=== PATIENT | female | born 1955 | race Caucasian/White ===

== ENCOUNTER → 2017-04-14 | Outpatient (CLI) | payer OTHER ==
[2017-04-14 11:14] LABS: ASPARTATE AMINO TRANSFERASE 39 U/L (15-37); BLOOD UREA NITROGEN 17 mg/dL (7-18)
== END | disposition home or self-care (01) ==
LOC: LAB 10:27
PROVIDERS: ATTEND Internal Medicine
DX: E03.9 Hypothyroidism, unspecified (principal); E78.2 Mixed hyperlipidemia; K21.9 Gastro-esophageal reflux disease without esophagitis; R73.01 Impaired fasting glucose
CPT/HCPCS: 36415; 80053; 80061; 83036

== ENCOUNTER → 2017-05-21 | Outpatient (CLI) | payer OTHER | END | disposition home or self-care (01) | LOC: CFH 11:06 | PROVIDERS: ATTEND Internal Medicine | DX: Z12.31 Encounter for screening mammogram for malignant neoplasm of breast (principal) | CPT/HCPCS: 77063; G0202 ==

== ENCOUNTER → 2017-06-08 | Outpatient (CLI) | payer OTHER | END | disposition home or self-care (01) | LOC: RAD 08:03 | PROVIDERS: ATTEND Nurse Practitioner Family | DX: G93.89 Other specified disorders of brain (principal); J32.0 Chronic maxillary sinusitis | CPT/HCPCS: 70486 ==

== ENCOUNTER 2017-08-02 20:05 | Emergency (ER) | payer OTHER ==
[~2017-08-02] VITALS: Ht 162.6 cm; Wt 72.7 kg
[2017-08-02] MEDS ORDERED: ONDANSETRON 2MG/ML, 2ML IVPush ONE (20:30)
[2017-08-02] MEDS ORDERED: FAMOTIDINE 20 MG/2 ML IVP ONE (20:30)
[2017-08-02] MEDS ORDERED: SODIUM CHLORIDE 0.9% 1,000ML IVBOLUS ONE ×2 (20:30→21:30)
[2017-08-02] MEDS ORDERED: SODIUM CHLORIDE FLUSH 10ML SYR IVF ONE (20:30)
[2017-08-02 20:52] LABS: HEMATOCRIT 44.3 % (34.6-47.8); HEMOGLOBIN 15.1 g/dL (11.7-16.4)
[2017-08-02 20:57] LABS: BLOOD UREA NITROGEN 20 mg/dL (7-18)
[2017-08-02] MEDS ORDERED: DIPHENHYDRAMINE 50 MG/ML, 1ML ONE (21:07)
[2017-08-02] MEDS ORDERED: METOCLOPRAMIDE 5 MG/ML, 2ML ONE (21:07)
[2017-08-02] MEDS ORDERED: DIPHENHYDRAMINE 50 MG/ML, 1ML IVPush ONE (21:30)
[2017-08-02] MEDS ORDERED: METOCLOPRAMIDE 5 MG/ML, 2ML IVPush ONE (21:30)
[2017-08-02 23:21] VITALS: BP 124/76
[2017-08-02] MEDS ORDERED: POTA20PA PO (23:27)
[2017-08-02] MEDS ORDERED: FURO40TA6 PO (23:27)
[2017-08-02] MEDS ORDERED: CARV25TA12 PO (23:27)
[2017-08-02] MEDS ORDERED: HUM100VI6 SQ (23:30)
[2017-08-02] MEDS ORDERED: ATOR20TA9 PO (23:30)
[2017-08-02] MEDS ORDERED: LISI-170 PO (23:30)
[2017-08-02] MEDS ORDERED: DEXAMETHASONE 4 MG/ML, 1ML ONE (23:56)
[2017-08-03] MEDS ORDERED: DEXAMETHASONE 4 MG/ML, 1ML PO ONE
== END 2017-08-03 00:51 | disposition home or self-care (01) ==
LOC: ED 21:00
DX: J32.0 Chronic maxillary sinusitis (principal); R51 Headache; R11.2 Nausea with vomiting, unspecified; K12.0 Recurrent oral aphthae
CPT/HCPCS: 36415; 70450; 80048; 82040; 85025; 96361; 96374; 96375; 99285; J1200; J2765; J7030

== ENCOUNTER → 2017-08-24 | Outpatient (CLI) | payer OTHER ==
[~2017-08-24] MED LIST: ATOR20TA9 PO; CARV25TA12 PO; FURO40TA6 PO; HUM100VI6 SQ; LISI-170 PO; POTA20PA PO
== END | disposition home or self-care (01) ==
LOC: RAD 13:21
PROVIDERS: ATTEND Specialist
DX: M25.511 Pain in right shoulder (principal)

== ENCOUNTER → 2017-10-11 | Outpatient (CLI) | payer OTHER ==
[2017-10-11 07:52] LABS: BLOOD UREA NITROGEN 25 mg/dL (7-18)
[2017-10-11 08:02] LABS: ASPARTATE AMINO TRANSFERASE 13 U/L (15-37)
== END | disposition home or self-care (01) ==
LOC: LAB 07:20
PROVIDERS: ATTEND Internal Medicine
DX: E78.2 Mixed hyperlipidemia (principal); K21.9 Gastro-esophageal reflux disease without esophagitis; J30.9 Allergic rhinitis, unspecified; E66.3 Overweight; D17.9 Benign lipomatous neoplasm, unspecified
CPT/HCPCS: 36415; 80053; 80061; 83036; 84443

== ENCOUNTER → 2018-05-31 | Outpatient (CLI) | payer OTHER | END | disposition home or self-care (01) | LOC: CFH 10:19 | PROVIDERS: ATTEND Internal Medicine | DX: Z12.31 Encounter for screening mammogram for malignant neoplasm of breast (principal); R92.1 Mammographic calcification found on diagnostic imaging of breast; K21.9 Gastro-esophageal reflux disease without esophagitis; E78.5 Hyperlipidemia, unspecified | CPT/HCPCS: 77063; 77067 ==

== ENCOUNTER 2018-11-08 12:40 | Emergency (ER) | payer OTHER ==
[~2018-11-08] VITALS: Ht 162.6 cm; Wt 71.1 kg
[~2018-11-08 12:40] MED LIST changes: +ATOR20TA37 PO; -ATOR20TA9 PO; -POTA20PA PO; +POTA20PA31 PO
--- NOTE | 2018-11-08 13:19 | NUR ---
MD IS AT THE BEDSIDE FOR ASSESSMENT
[2018-11-08] MEDS ORDERED: METOCLOPRAMIDE 5 MG/ML, 2ML IVPush ONE (13:30)
[2018-11-08] MEDS ORDERED: SODIUM CHLORIDE 0.9% 1,000ML IVBOLUS ONE (13:30)
[2018-11-08] MEDS ORDERED: DIPHENHYDRAMINE 50 MG/ML, 1ML IVPush ONE (13:30)
[2018-11-08] MEDS ORDERED: KETOROLAC 30 MG/1 ML IVPush ONE (13:30)
[2018-11-08] MEDS ORDERED: DIPHENHYDRAMINE 50 MG/ML, 1ML ONE (13:41)
[2018-11-08] MEDS ORDERED: KETOROLAC 30 MG/1 ML ONE (13:42)
[2018-11-08] MEDS ORDERED: METOCLOPRAMIDE 5 MG/ML, 2ML ONE (13:42)
[2018-11-08 13:58] LABS: BASOPHILS # (AUTO) 0.04 x10^3/uL (0-0.1); BASOPHILS % (AUTO) 1 % (0-1); EOSINOPHILS # (AUTO) 0.17 x10^3/uL (0-0.4); EOSINOPHILS % (AUTO) 2 % (1-7); LYMPHOCYTES # (AUTO) 1.06 x10^3/uL (1-3.4); LYMPHOCYTES % (AUTO) 13 % (22-44); MD NO; MEAN CORPUSCULAR HGB CONC 34.4 g/dL (32.4-35.8); MEAN CORPUSCULAR VOLUME 84.2 fL (80-100); MEAN PLATELET VOLUME 8.3 fL (7.4-10.4); MONOCYTES # (AUTO) 0.53 x10^3/uL (0.2-0.8); MONOCYTES % (AUTO) 7 % (2-9); NEUTROPHILS # (AUTO) 6.36 x10^3/uL (1.8-6.8); NEUTROPHILS % (AUTO) 78 % (42-75); PLATELET COUNT 246 x10^3/uL (130-400); RED BLOOD COUNT 5.25 x10^6/uL (3.82-5.3); RED CELL DISTRIBUTION WIDTH 13.1 % (9.6-15.2)
[2018-11-08 14:04] LABS: ALBUMIN 4.2 g/dL (3.4-5.0); ANION GAP 8 mmol/L (5-15); CALCIUM 9.5 mg/dL (8.5-10.1); CHLORIDE 104 mmol/L (98-107)
--- NOTE | 2018-11-08 14:05 | NUR ---
PT RESTING COMFORTABLY ON AN E.R. GURNEY WHILA ALLOWING MEDICATIONS TO ABSORB. I WILL MONITOR AND TREAT ORDERED, as well as prn while awaiting lab results.
[2018-11-08 14:07] LABS: ALANINE AMINOTRANSFERASE 22 U/L (12-78); ALKALINE PHOSPHATASE 50 U/L (45-117); BILIRUBIN,TOTAL 0.5 mg/dL (0.2-1.0); CREATINE KINASE, TOTAL 26 U/L (26-192); CREATININE 1.66 mg/dL (0.55-1.02); TOTAL PROTEIN 8.4 g/dL (6.4-8.2)
--- NOTE | 2018-11-08 14:34 | NUR ---
PT TO CT W TECH
[2018-11-08] MEDS ORDERED: DEXAMETHASONE 4 MG/ML, 5ML ONE (15:40)
[2018-11-08] MEDS ORDERED: ONDANSETRON 2MG/ML, 2ML ONE (15:40)
--- NOTE | 2018-11-08 15:50 | NUR ---
PT MEDICATED PER MAR FOR CONTINUED NAUSEA, AND HEADACHE. VS ARE STABLE AND WDL. I WILL CONTINUE TO MONITOR AND TREAT ORDERED, WELL PRN WHILE AWAITING FURTHER PLAN OF CARE.
[2018-11-08 15:58] LABS: MICROSCOPIC AUTO
[2018-11-08] MEDS ORDERED: DEXAMETHASONE 4 MG/ML, 1ML IV ONE (16:00)
[2018-11-08] MEDS ORDERED: ONDANSETRON 2MG/ML, 2ML IVPush ONE (16:00)
[2018-11-08 16:03] LABS: CULTURE INDICATED? YES
--- NOTE | 2018-11-08 16:28 | NUR ---
EMI (RN) IS ASSUMING CARE OF THIS PT WHILE I ENJOY A LUNCH BREAK. SBAR REPORT WAS EXCHANGED AT THE BEDSIDE.
--- NOTE | 2018-11-08 17:08 | NUR ---
I AM ASSUMING CARE OF THIS PT FROM EMI (RN) AT THIS TIME. SBAR REPORT WAS EXCHANGED AT THE BEDSIDE.
[2018-11-08 17:21] VITALS: BP 111/79
== END 2018-11-08 17:23 | disposition home or self-care (01) ==
LOC: ED 16:14
DX: R51 Headache (principal); R19.7 Diarrhea, unspecified; R11.2 Nausea with vomiting, unspecified; E86.0 Dehydration; N28.9 Disorder of kidney and ureter, unspecified; E11.9 Type 2 diabetes mellitus without complications; E78.5 Hyperlipidemia, unspecified; Z90.710 Acquired absence of both cervix and uterus; Z86.39 Personal history of other endocrine, nutritional and metabolic disease
CPT/HCPCS: 36415; 70450; 71045; 74176; 80053; 81001; 82550; 83690; 85025; 87086; 96374; 96375; 99284; J1100; J1200; J1885; J2405; J2765; J7030

== ENCOUNTER 2019-01-21 10:13 | Day surgery (SDC) | payer OTHER ==
[~2019-01-21] VITALS: Ht 165.1 cm; Wt 66.9 kg
[~2019-01-21 10:13] MED LIST changes: +HYDROmorphone 1 MG/ML, 1ML IV PRN; +LABETALOL 5MG/ML, 20ML IV PRN; +MEPERIDINE/PF 25MG/0.5ML IVPush PRN; +MIDAZOLAM 1 MG/ML, 2ML IV PRN; +ONDANSETRON 2MG/ML, 2ML IVPush PRN; +OXYcodone 5 MG/5 ML ORAL.SOL UDC PO PRN; +PLEASE ENTER HEIGHT AND WEIGHT MC SCH
[2019-01-21 10:37] VITALS: BP 130/79
[2019-01-21] MEDS ORDERED: LACTATED RINGERS 1,000 ML IV SCH (10:41)
[2019-01-21] MEDS ORDERED: MULT-658 PO (11:10)
[2019-01-21] MEDS ORDERED: DIPH25CA61 PO (11:10)
[2019-01-21] MEDS ORDERED: ATOR20TA37 PO (11:10)
[2019-01-21] MEDS ORDERED: CETI10CA PO (11:10)
[2019-01-21] MEDS ORDERED: LEVO112T4 PO (11:10)
[2019-01-21] MEDS ORDERED: CHOL200052 PO (11:10)
[2019-01-21] MEDS ORDERED: METH750T2 PO (11:10)
[2019-01-21] MEDS ORDERED: AZEL137S4 NAS (11:10)
[2019-01-21] MEDS ORDERED: KRIL1CAP22 PO (11:10)
[2019-01-21] MEDS ORDERED: LACT10SO28 PO (11:10)
[2019-01-21] MEDS ORDERED: OMEP40CA6 PO (11:10)
[2019-01-21] MEDS ORDERED: INDO75CA3 PO (11:10)
[2019-01-21] MEDS ORDERED: DEXAMETHASONE 4 MG/ML, 1ML ONE (12:16)
[2019-01-21] MEDS ORDERED: ONDANSETRON 2MG/ML, 2ML ONE (12:16)
[2019-01-21] MEDS ORDERED: PROPOFOL 10 MG/ML, 20ML ONE (12:16)
[2019-01-21] MEDS ORDERED: PROMETHAZINE 25 MG/ML, 1ML ONE (13:07)
[2019-01-21] MEDS ORDERED: FENTANYL PF 100 MCG/2ML ONE (13:14)
[2019-01-21] MEDS ORDERED: ACETAMINOPHEN 650 MG/20.3 ML UDC ONE (13:14)
[2019-01-21] MEDS: FENTANYL PF 100 MCG/2ML IV PRN ×3 (13:15→13:50)
[2019-01-21] MEDS ORDERED: PROMETHAZINE 25 MG/ML, 1ML IV PRN (13:30)
[2019-01-21] MEDS ORDERED: ACETAMINOPHEN 650 MG/20.3 ML UDC PO PRN (13:30)
[2019-01-21] MEDS ORDERED: OXYcodone 5 MG/5 ML ORAL.SOL UDC ONE (13:47)
== END 2019-01-21 15:05 | disposition home or self-care (01) ==
LOC: OUT 10:13
PROVIDERS: ATTEND Internal Medicine
DX: K56.609 Unspecified intestinal obstruction, unspecified as to partial versus complete obstruction (principal); K57.30 Diverticulosis of large intestine without perforation or abscess without bleeding; K63.3 Ulcer of intestine; K64.8 Other hemorrhoids; E03.9 Hypothyroidism, unspecified; E78.00 Pure hypercholesterolemia, unspecified; Z88.8 Allergy status to other drugs, medicaments and biological substances
CPT/HCPCS: 45380; 45398; 88305; 93005; J1100; J2405; J2550; J2704; J3010; J7120

== ENCOUNTER 2019-01-29 09:46 | Inpatient (IN) | payer OTHER ==
[~2019-01-29] VITALS: Ht 165.1 cm; Wt 65.0 kg
[~2019-01-29 09:46] MED LIST changes: +AZEL137S4 NAS; +CETI10CA PO; +CHOL200052 PO; +DIPH25CA61 PO; -HYDROmorphone 1 MG/ML, 1ML IV PRN; +INDO75CA3 PO; +KRIL1CAP22 PO; -LABETALOL 5MG/ML, 20ML IV PRN; +LACT10SO28 PO; +LEVO112T4 PO; -MEPERIDINE/PF 25MG/0.5ML IVPush PRN; +METH750T2 PO; -MIDAZOLAM 1 MG/ML, 2ML IV PRN; +MULT-658 PO; +OMEP40CA6 PO; -ONDANSETRON 2MG/ML, 2ML IVPush PRN; -OXYcodone 5 MG/5 ML ORAL.SOL UDC PO PRN; -PLEASE ENTER HEIGHT AND WEIGHT MC SCH
[2019-01-29] MEDS ORDERED: ONDANSETRON 2MG/ML, 2ML ONE (10:06)
--- NOTE | 2019-01-29 10:06 | NUR ---
PT REFUSED EKG WHEN TECH ARRIVED. PT STATED "I DON'T NEED AN EKG. YOU CAN LOOK AT MY EKG FROM THE ."
[2019-01-29] MEDS ORDERED: HYDROmorphone 1 MG/ML, 1ML AMP ONE ×2 (10:07→12:04)
[2019-01-29] MEDS: HYDROmorphone 2 MG/ML, 1ML IVPush PRN ×2 (10:25→12:06)
--- NOTE | 2019-01-29 10:26 | NUR ---
PT IN GOWN IN BED. BBACK BFROM X RAY AT THIS TIME. PT MEDICATED PER ORDER
--- NOTE | 2019-01-29 10:28 | NUR ---
LAST ORAL INTAKE WAS 01/28 AT 1800
[2019-01-29] MEDS ORDERED: ONDANSETRON 2MG/ML, 2ML IVPush ONE (10:30)
[2019-01-29] MEDS ORDERED: SODIUM CHLORIDE FLUSH 10ML SYR IVF ONE (10:30)
[2019-01-29] MEDS ORDERED: SODIUM CHLORIDE 0.9% 1,000ML IVBOLUS ONE ×2 (10:30→12:00)
[2019-01-29 10:44] LABS: BASOPHILS # (AUTO) 0.09 x10^3/uL (0-0.1); BASOPHILS % (AUTO) 1 % (0-1); EOSINOPHILS # (AUTO) 0.05 x10^3/uL (0-0.4); EOSINOPHILS % (AUTO) 1 % (1-7); LYMPHOCYTES # (AUTO) 1.28 x10^3/uL (1-3.4); LYMPHOCYTES % (AUTO) 17 % (22-44); MD NO; MEAN CORPUSCULAR HEMOGLOBIN 26.1 pg (27.0-34.8); MEAN CORPUSCULAR HGB CONC 32.7 g/dL (32.4-35.8); MEAN CORPUSCULAR VOLUME 79.9 fL (80-100); MEAN PLATELET VOLUME 8.6 fL (7.4-10.4); MONOCYTES # (AUTO) 0.39 x10^3/uL (0.2-0.8); MONOCYTES % (AUTO) 5 % (2-9); NEUTROPHILS # (AUTO) 5.92 x10^3/uL (1.8-6.8); NEUTROPHILS % (AUTO) 77 % (42-75); PLATELET COUNT 210 x10^3/uL (130-400); RED BLOOD COUNT 5.37 x10^6/uL (3.82-5.3); RED CELL DISTRIBUTION WIDTH 13.3 % (9.6-15.2)
[2019-01-29 10:53] LABS: ALANINE AMINOTRANSFERASE 27 U/L (12-78); ANION GAP 8 mmol/L (5-15); CALCIUM 9.6 mg/dL (8.5-10.1); CHLORIDE 108 mmol/L (98-107); CREATININE 1.03 mg/dL (0.55-1.02)
[2019-01-29 10:55] LABS: ALKALINE PHOSPHATASE 40 U/L (45-117); BILIRUBIN,TOTAL 0.7 mg/dL (0.2-1.0); TOTAL PROTEIN 7.7 g/dL (6.4-8.2)
--- NOTE | 2019-01-29 12:13 | NUR ---
dr cosme spoke with dr kirkpatrick. paged dr xavier for dr cosme.
[2019-01-29] MEDS: NS + 20MEQ KCL 1,000 ML IV SCH (12:52)
[2019-01-29] MEDS ORDERED: hydrALAzine 20 MG/ML, 1ML IVPush PRN (13:00)
[2019-01-29] MEDS ORDERED: DEXTROSE 4 GM TAB.CHEW PO PRN (13:00)
[2019-01-29] MEDS ORDERED: DHA PO SCH (13:00)
[2019-01-29] MEDS ORDERED: EPA PO SCH (13:00)
[2019-01-29] MEDS ORDERED: ONDANSETRON 2MG/ML, 2ML IVPush PRN (13:00)
[2019-01-29] MEDS ORDERED: PHOSPHO PO SCH (13:00)
[2019-01-29] MEDS ORDERED: KRILL PO SCH (13:00)
[2019-01-29] MEDS ORDERED: KETOROLAC 30 MG/1 ML IV PRN (13:00)
[2019-01-29] MEDS ORDERED: PROMETHAZINE 25 MG/ML, 1ML IM PRN (13:00)
[2019-01-29] MEDS ORDERED: [UNRECOGNIZED DRUG - OTHER] PO SCH (13:00)
[2019-01-29] MEDS: MULTIVITAMIN 1 TABLET PO SCH (13:00)
[2019-01-29] MEDS ORDERED: GLUCAGON 1 MG IM PRN (13:00)
[2019-01-29] MEDS ORDERED: AST PO SCH (13:00)
[2019-01-29] MEDS ORDERED: BUTALB/APAP/CAFFEINE 50MG/325MG/40MG PO PRN (13:00)
[2019-01-29] MEDS ORDERED: TEMPLATE NON-FORMULARY MED. (Cholecalciferol (Vitamin D3)** (Vitamin D**) 2,000 UNIT) PO SCH (13:00)
[2019-01-29] MEDS ORDERED: ACETAMINOPHEN 325 MG TABLET PO PRN (13:00)
[2019-01-29] MEDS ORDERED: METHOCARBAMOL 750 MG TABLET PO PRN (13:00)
[2019-01-29] MEDS: INSULIN LISPRO 100 UNITS/ML, PEN SQ-INSULIN SCH ×3 (13:00→21:00)
[2019-01-29] MEDS ORDERED: TEMPLATE NON-FORMULARY MED. (Omeprazole** 40 MG) PO SCH (13:00)
[2019-01-29] MEDS ORDERED: DEXTROSE 50%, 50ML SYRINGE IVPush PRN (13:00)
[2019-01-29] MEDS ORDERED: CETIRIZINE 10 MG TABLET PO PRN (13:00)
[2019-01-29] MEDS ORDERED: Azelastine Hcl Nasal 1 SPRAY) NAS PRN (13:00)
[2019-01-29 13:44] LABS: MICROSCOPIC NOT IND
[2019-01-29] MEDS ORDERED: PROMETHAZINE 25 MG/ML, 1ML ONE (13:45)
[2019-01-29] MEDS ORDERED: MORPHINE SULFATE 4 MG/ML, 1ML ONE (13:45)
[2019-01-29] MEDS: MORPHINE SULFATE 4 MG/ML, 1ML IVPush PRN ×2 (13:48→20:01)
[2019-01-29 13:55] LABS: CULTURE INDICATED? NO
[2019-01-29] MEDS ORDERED: OMEPRAZOLE 20 MG CAPSULE.DR ONE (14:37)
--- NOTE | 2019-01-29 14:46 | NUR ---
ng tube discussed with gi and pt. at this time pt is refusing the ng tube for a later time.
[2019-01-29] MEDS: LEVOTHYROXINE 112 MCG TABLET PO SCH (15:24)
--- NOTE | 2019-01-29 16:02 | NUR ---
PT MEDICATED ORDERED, ON REASSESSMENT OF IV LINE PT ACCIDENTLY PULLED OUT, RESTARTED TO L FA, PT TOLERATED WELL.
[2019-01-29] MEDS ORDERED: NS + 20MEQ KCL 1,000 ML IV ONE (16:12)
--- NOTE | 2019-01-29 18:00 | NUR ---
general surgeon in room now.
[2019-01-29 19:00] VITALS: BP 146/72
[2019-01-29] MEDS: ATORVASTATIN 20 MG TABLET PO SCH (20:10)
[2019-01-29] MEDS: SODIUM CHLORIDE FLUSH 10ML SYR IVF SCH (21:00)
[2019-01-30 01:52] VITALS: BP 120/72
[2019-01-30] MEDS: NS + 20MEQ KCL 1,000 ML IV SCH (03:09)
[2019-01-30 05:29] LABS: BASOPHILS # (AUTO) 0.03 x10^3/uL (0-0.1); BASOPHILS % (AUTO) 0 % (0-1); EOSINOPHILS % (AUTO) 1 % (1-7); LYMPHOCYTES % (AUTO) 30 % (22-44); MD NO; MEAN CORPUSCULAR HEMOGLOBIN 27.2 pg (27.0-34.8); MEAN CORPUSCULAR HGB CONC 33.5 g/dL (32.4-35.8); MEAN CORPUSCULAR VOLUME 81.2 fL (80-100); MEAN PLATELET VOLUME 8.5 fL (7.4-10.4); MONOCYTES # (AUTO) 0.66 x10^3/uL (0.2-0.8); MONOCYTES % (AUTO) 10 % (2-9); NEUTROPHILS # (AUTO) 4.09 x10^3/uL (1.8-6.8); NEUTROPHILS % (AUTO) 59 % (42-75); PLATELET COUNT 174 x10^3/uL (130-400); RED CELL DISTRIBUTION WIDTH 13.7 % (9.6-15.2)
[2019-01-30 05:34] LABS: ANION GAP 3 mmol/L (5-15); CALCIUM 8.2 mg/dL (8.5-10.1); CHLORIDE 110 mmol/L (98-107); CREATININE 0.85 mg/dL (0.55-1.02)
[2019-01-30 06:32] VITALS: BP 117/70
[2019-01-30] MEDS: INSULIN LISPRO 100 UNITS/ML, PEN SQ-INSULIN SCH (07:00)
[2019-01-30] MEDS ORDERED: BUTALB/APAP/CAFFEINE 50MG/325MG/40MG PO PRN (07:30)
[2019-01-30] MEDS: LACTOBACILLUS CHEW TABLET PO SCH ×3 (09:00→20:57)
[2019-01-30] MEDS: MULTIVITAMIN 1 TABLET PO SCH (09:00)
[2019-01-30] MEDS: OMEGA-3/FISH OIL CAPSULE PO SCH (09:00)
[2019-01-30] MEDS: SODIUM CHLORIDE FLUSH 10ML SYR IVF SCH ×2 (09:00→21:00)
[2019-01-30] MEDS: SODIUM CHLORIDE 0.9% 1,000 ML IV SCH ×2 (09:57→20:57)
[2019-01-30] MEDS: ENOXAPARIN 40 MG/0.4 ML SQ SCH (09:57)
[2019-01-30] MEDS: CHOLECALCIFEROL 1,000 UNIT TABLET PO SCH (09:58)
[2019-01-30] MEDS: OMEPRAZOLE 20 MG CAPSULE.DR PO SCH (09:58)
[2019-01-30] MEDS: LEVOTHYROXINE 112 MCG TABLET PO SCH (09:59)
[2019-01-30] MEDS ORDERED: MORPHINE SULFATE 4 MG/ML, 1ML IVPush PRN (10:00)
[2019-01-30] MEDS: ACETAMINOPHEN 325 MG TABLET PO PRN ×2 (10:03→18:45)
[2019-01-30 12:57] VITALS: BP 131/82
[2019-01-30] MEDS ORDERED: GOLYTELY 4,000ML ORAL.SOL PO ONE (14:30)
[2019-01-30 19:07] VITALS: BP 123/74
[2019-01-30] MEDS: ATORVASTATIN 20 MG TABLET PO SCH (20:57)
[2019-01-31 03:33] VITALS: BP 141/67
[2019-01-31] MEDS: SODIUM CHLORIDE 0.9% 1,000 ML IV SCH (03:45)
[2019-01-31] MEDS: OMEPRAZOLE 20 MG CAPSULE.DR PO SCH ×2 (06:00→19:56)
[2019-01-31] MEDS: ENOXAPARIN 40 MG/0.4 ML SQ SCH (07:30)
[2019-01-31 07:50] VITALS: BP 123/64
[2019-01-31] MEDS: SODIUM CHLORIDE FLUSH 10ML SYR IVF SCH ×2 (09:00→20:57)
[2019-01-31] MEDS: LEVOTHYROXINE 112 MCG TABLET PO SCH ×2 (09:00→19:57)
[2019-01-31] MEDS: MULTIVITAMIN 1 TABLET PO SCH ×2 (09:00→19:57)
[2019-01-31] MEDS: OMEGA-3/FISH OIL CAPSULE PO SCH ×2 (09:00→19:56)
[2019-01-31] MEDS: CHOLECALCIFEROL 1,000 UNIT TABLET PO SCH ×2 (09:00→19:57)
[2019-01-31] MEDS: LACTOBACILLUS CHEW TABLET PO SCH ×3 (09:00→19:56)
[2019-01-31] MEDS ORDERED: PROPOFOL 10 MG/ML, 50ML ONE (09:52)
[2019-01-31 13:32] VITALS: BP 113/76
[2019-01-31 19:27] VITALS: BP 128/77
[2019-01-31] MEDS: ATORVASTATIN 20 MG TABLET PO SCH (20:57)
[2019-02-01] MEDS: ENOXAPARIN 40 MG/0.4 ML SQ SCH (07:30)
[2019-02-01 08:35] VITALS: BP 116/76
[2019-02-01] MEDS: SODIUM CHLORIDE FLUSH 10ML SYR IVF SCH (09:00)
[2019-02-01] MEDS: MULTIVITAMIN 1 TABLET PO SCH (10:03)
[2019-02-01] MEDS: LACTOBACILLUS CHEW TABLET PO SCH (10:03)
[2019-02-01] MEDS: LEVOTHYROXINE 112 MCG TABLET PO SCH (10:03)
[2019-02-01] MEDS: OMEGA-3/FISH OIL CAPSULE PO SCH (10:04)
[2019-02-01] MEDS: OMEPRAZOLE 20 MG CAPSULE.DR PO SCH (10:05)
[2019-02-01] MEDS ORDERED: ACID1TAB7 PO (12:31)
[2019-02-01] MEDS ORDERED: OMEP40CA6 PO (12:31)
== END 2019-02-01 13:06 | disposition home or self-care (01) | DRG 389 ==
LOC: ED 11:03 → EDIP 12:32 → 3NE 18:17
PROVIDERS: ADMIT Hospitalist; ATTEND Hospitalist
PROC: 0DBC8ZX Excision of Ileocecal Valve, Via Natural or Artificial Opening Endoscopic, Diagnostic (ICD-10-PCS; principal; 2019-01-31 14:30)
DX: K56.600 Partial intestinal obstruction, unspecified as to cause (principal); E87.2 Acidosis; K63.3 Ulcer of intestine; E11.9 Type 2 diabetes mellitus without complications; E78.00 Pure hypercholesterolemia, unspecified; E78.5 Hyperlipidemia, unspecified; J30.9 Allergic rhinitis, unspecified; K21.9 Gastro-esophageal reflux disease without esophagitis; K57.30 Diverticulosis of large intestine without perforation or abscess without bleeding; L40.50 Arthropathic psoriasis, unspecified; K64.8 Other hemorrhoids; M06.9 Rheumatoid arthritis, unspecified; T39.395A Adverse effect of other nonsteroidal anti-inflammatory drugs [NSAID], initial encounter; Z79.1 Long term (current) use of non-steroidal anti-inflammatories (NSAID); Z82.49 Family history of ischemic heart disease and other diseases of the circulatory system; Z90.710 Acquired absence of both cervix and uterus; Z88.8 Allergy status to other drugs, medicaments and biological substances
CPT/HCPCS: 36415; 74018; 74022; 74177; 80048; 80053; 81003; 82962; 83605; 83690; 84443; 85025; 88305; 93005; 96361; 96372; 96374; 96375; 96376; 99285; G0378; J1170; J1650; J2405; J2550; J2704; J3480; J7030

== ENCOUNTER 2020-01-05 10:14 | Outpatient (CLI) | payer MEDICARE, OTHER ==
[~2020-01-05 10:14] MED LIST changes: +ACID1TAB7 PO; +OMEP40CA42 PO; -OMEP40CA6 PO
[2020-01-05] MEDS ORDERED: SINCALIDE (KINEVAC) 5 MCG ONE (12:27)
== END 2020-01-05 23:59 | disposition home or self-care (01) ==
LOC: RAD 10:14
PROVIDERS: ATTEND Internal Medicine
DX: K76.0 Fatty (change of) liver, not elsewhere classified (principal); M25.511 Pain in right shoulder; K52.9 Noninfective gastroenteritis and colitis, unspecified; K82.4 Cholesterolosis of gallbladder
CPT/HCPCS: 73030; 76700; 78227; A9537; J2805

== ENCOUNTER 2020-04-12 08:28 | Outpatient (CLI) | payer MEDICARE, OTHER | END 2020-04-12 23:59 | disposition home or self-care (01) | LOC: CFH 08:28 | PROVIDERS: ATTEND Internal Medicine | DX: Z12.31 Encounter for screening mammogram for malignant neoplasm of breast (principal); Z13.820 Encounter for screening for osteoporosis; N95.1 Menopausal and female climacteric states; M81.0 Age-related osteoporosis without current pathological fracture | CPT/HCPCS: 76641; 77080; 77067 ==

== ENCOUNTER → 2021-05-03 | Outpatient (CLI) | payer MEDICARE, OTHER ==
[~2021-05-03] MED LIST changes: +ALPR1TAB2 PO; +METH-640 PO; -METH750T2 PO; -OMEP40CA42 PO; +OMEP40CA8 PO
== END | disposition home or self-care (01) ==
LOC: RAD 11:55
PROVIDERS: ATTEND Internal Medicine
DX: M50.30 Other cervical disc degeneration, unspecified cervical region (principal); M48.02 Spinal stenosis, cervical region; M25.78 Osteophyte, vertebrae
CPT/HCPCS: 72050